=== PATIENT | male | born 2005 | race Caucasian/White ===

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

== ENCOUNTER 2025-06-22 15:34 | Emergency (ER) | payer BC, OTHER ==
[~2025-06-22] VITALS: Ht 185.4 cm; Wt 62.4 kg
[~2025-06-22 15:34] MED LIST changes: +ONDA-282 PO; -ONDA4TAB6 PO
[2025-06-22] MEDS: LIDOCAINE 1% MDV 20 ML VIAL SC ONE (18:40)
[2025-06-22] MEDS: CEPHALEXIN 500 MG CAP PO ONE (19:35)
[2025-06-22] MEDS: NEOSPORIN OINT 0.9 GM PKT TOP ONE (19:35)
[2025-06-22] MEDS ORDERED: CEPH500C PO (19:35)
[2025-06-22] MEDS: TETANUS/DIPHTH/ACEL. PERTUSSIS 0.5 ML SYR IM.IMMUN ONE (19:36)
[2025-06-22 19:46] VITALS: BP 117/67; TEMP 98.1; O2SAT 100
== END 2025-06-22 19:49 | disposition home or self-care (01) ==
LOC: M ED 15:34
DX: S61.411A Laceration without foreign body of right hand, initial encounter (principal); W26.0XXA Contact with knife, initial encounter; Z79.2 Long term (current) use of antibiotics; Y92.009 Unspecified place in unspecified non-institutional (private) residence as the place of occurrence of the external cause; Y93.89 Activity, other specified; Y99.9 Unspecified external cause status; Z23 Encounter for immunization